=== PATIENT | female | born 1945 | race Caucasian/White ===

== ENCOUNTER → 2017-02-20 | Outpatient (CLI) | payer MEDICARE, OTHER ==
[~2017-02-20] MED LIST: OMNIPAQUE 350 MG/ML, 100ML BOTTLE ONE
== END | disposition home or self-care (01) ==
LOC: RAD 11:15
PROVIDERS: ATTEND Internal Medicine
DX: C15.9 Malignant neoplasm of esophagus, unspecified (principal); J98.11 Atelectasis; R13.10 Dysphagia, unspecified; R79.1 Abnormal coagulation profile
CPT/HCPCS: 36415; 71260; 74160; 82378; 82565; 85610; Q9967

== ENCOUNTER 2017-03-20 11:17 | Observation (INO) | payer MEDICARE, OTHER ==
[~2017-03-20] VITALS: Ht 162.6 cm; Wt 65.0 kg
[~2017-03-20 11:17] MED LIST changes: +OMEP40CA6 PO; -OMNIPAQUE 350 MG/ML, 100ML BOTTLE ONE; +RANI150T4 PO
[2017-03-20 13:10] VITALS: BP 139/79
[2017-03-20] MEDS ORDERED: LACTATED RINGERS 1,000 ML IV SCH (13:12)
[2017-03-20] MEDS ORDERED: PNEUMOCOCCAL VACC.PER PHARMACY IM ONE (13:30)
[2017-03-20] MEDS ORDERED: DEXAMETHASONE 4 MG/ML, 1ML ONE (15:34)
[2017-03-20] MEDS ORDERED: CEFAZOLIN 1,000 MG ONE (15:34)
[2017-03-20] MEDS ORDERED: SUCCINYLCHOLINE 20 MG/ML, 10ML ONE (15:34)
[2017-03-20] MEDS ORDERED: KETOROLAC 30 MG/1 ML ONE (15:34)
[2017-03-20] MEDS ORDERED: ONDANSETRON 2MG/ML, 2ML ONE (15:34)
[2017-03-20] MEDS ORDERED: BUPIVACAINE/PF-EPI 0.5% 1:200K IM ONE (16:03)
[2017-03-20] MEDS ORDERED: ACETAMINOPHEN 325 MG TABLET PO PRN (16:30)
[2017-03-20] MEDS ORDERED: LORazepam 2 MG/ML, 1ML IV PRN (16:30)
[2017-03-20] MEDS ORDERED: OXYcodone 5 MG/5 ML ORAL.SOL UDC PO PRN (16:30)
[2017-03-20] MEDS ORDERED: HYDROmorphone 1 MG/ML, 1ML IV PRN (16:30)
[2017-03-20] MEDS ORDERED: ENALAPRILAT 1.25 MG/ML, 2ML IV PRN (16:30)
[2017-03-20] MEDS ORDERED: MEPERIDINE/PF 25MG/0.5ML IVPush PRN (16:30)
[2017-03-20] MEDS ORDERED: ACETAMINOPHEN 650 MG SUPP PR PRN (16:30)
[2017-03-20] MEDS ORDERED: hydrALAzine 20 MG/ML, 1ML IV PRN ×2 (16:30)
[2017-03-20] MEDS ORDERED: HYDROcodone/APAP 7.5-325MG/15ML UDC PO PRN ×2 (16:30)
[2017-03-20] MEDS ORDERED: LABETALOL 5MG/ML, 20ML IV PRN (16:30)
[2017-03-20] MEDS ORDERED: FENTANYL PF 100 MCG/2ML IV PRN (16:30)
[2017-03-20] MEDS ORDERED: EPHEDRINE 50 MG/ML, 1ML IVPush PRN (16:30)
[2017-03-20] MEDS ORDERED: DIPHENHYDRAMINE 50 MG/ML, 1ML IV PRN (16:30)
[2017-03-20] MEDS ORDERED: PROMETHAZINE 25 MG/ML, 1ML IM PRN (16:30)
[2017-03-20] MEDS ORDERED: morphine SULFATE 10 MG/ML, 1ML IV PRN (16:30)
[2017-03-20] MEDS ORDERED: ONDANSETRON 2MG/ML, 2ML IVPush PRN (16:30)
[2017-03-20] MEDS ORDERED: PROMETHAZINE 12.5 MG SUPP PR PRN (16:30)
[2017-03-20] MEDS ORDERED: PROMETHAZINE 25 MG/ML, 1ML IV PRN (16:30)
[2017-03-20] MEDS ORDERED: MIDAZOLAM 1 MG/ML, 2ML IV PRN (16:30)
[2017-03-20] MEDS ORDERED: FENTANYL PF 100 MCG/2ML ONE (16:35)
[2017-03-20] MEDS ORDERED: OXYcodone 5 MG/5 ML ORAL.SOL UDC ONE (16:35)
[2017-03-20] MEDS: PANTOPRAZOLE 40 MG IV IVPush SCH (18:38)
[2017-03-20 18:48] VITALS: BP 104/73
[2017-03-20] MEDS: LACTATED RINGERS 1,000 ML IV SCH ×2 (20:00→23:07)
[2017-03-20] MEDS: ONDANSETRON 2MG/ML, 2ML IVPush PRN (20:13)
[2017-03-20] MEDS: CEFAZOLIN PMX 1GM/50ML 50 ML IVPB SCH (23:07)
[2017-03-21 02:33] VITALS: BP 127/73
[2017-03-21] MEDS ORDERED: LACTATED RINGERS 500 ML IVBOLUS ONE (04:30)
[2017-03-21] MEDS: LACTATED RINGERS 1,000 ML IV SCH (05:16)
[2017-03-21] MEDS: ONDANSETRON 2MG/ML, 2ML IVPush PRN ×2 (05:44→11:00)
[2017-03-21 06:33] VITALS: BP 116/59
[2017-03-21] MEDS: CEFAZOLIN PMX 1GM/50ML 50 ML IVPB SCH (07:48)
[2017-03-21] MEDS: PANTOPRAZOLE 40 MG IV IVPush SCH (07:50)
[2017-03-21] MEDS ORDERED: ENOXAPARIN 40 MG/0.4 ML SQ SCH (09:00)
[2017-03-21 11:21] VITALS: BP 126/59
[2017-03-21] MEDS ORDERED: HYDR473S47 PO (12:58)
== END 2017-03-21 13:08 | disposition home or self-care (01) ==
LOC: INTOOBSV 12:47 → ORIP 12:47 → 4NOR 17:33 → DCLOUNGE 03-21 12:53
PROVIDERS: ADMIT Thoracic Surgery (Cardiothoracic Vascular Surgery); ATTEND Thoracic Surgery (Cardiothoracic Vascular Surgery)
DX: C15.9 Malignant neoplasm of esophagus, unspecified (principal); R13.10 Dysphagia, unspecified; R63.4 Abnormal weight loss; Z85.01 Personal history of malignant neoplasm of esophagus
CPT/HCPCS: 44186; 93005; 96365; 96372; 96375; 96376; C9113; G0378; J0330; J0690; J1100; J1650; J1885; J2250; J2405; J3010; J7120

== ENCOUNTER → 2017-03-29 | Outpatient (CLI) | payer MEDICARE, OTHER ==
[~2017-03-29] MED LIST changes: +HYDR473S47 PO
[2017-03-29 12:56] LABS: BLOOD UREA NITROGEN 12 mg/dL (7-18)
[2017-03-29 13:01] LABS: ASPARTATE AMINO TRANSFERASE 16 U/L (15-37)
== END | disposition home or self-care (01) ==
LOC: CFH 11:28
PROVIDERS: ATTEND Specialist
DX: Z51.11 Encounter for antineoplastic chemotherapy (principal); C15.5 Malignant neoplasm of lower third of esophagus
CPT/HCPCS: 36415; 80053; 83615

== ENCOUNTER → 2017-04-26 | Outpatient (CLI) | payer MEDICARE, OTHER | END | disposition home or self-care (01) | LOC: LAB 11:19 | PROVIDERS: ATTEND Radiology Radiation Oncology | DX: C15.5 Malignant neoplasm of lower third of esophagus (principal); N39.0 Urinary tract infection, site not specified | CPT/HCPCS: 81001; 87077; 87086; 87147; 87186 ==

== ENCOUNTER → 2017-05-27 | Outpatient (CLI) | payer MEDICARE, OTHER ==
[~2017-05-27] MED LIST changes: +OMNIPAQUE 350 MG/ML, 100ML BOTTLE ONE
== END | disposition home or self-care (01) ==
LOC: CFH 13:26
PROVIDERS: ATTEND Specialist
DX: C15.5 Malignant neoplasm of lower third of esophagus (principal); E27.8 Other specified disorders of adrenal gland; M47.896 Other spondylosis, lumbar region; Z93.1 Gastrostomy status
CPT/HCPCS: 71260; 74177; Q9967

== ENCOUNTER → 2017-06-25 | Outpatient (CLI) | payer MEDICARE, OTHER ==
[~2017-06-25] MED LIST changes: -OMNIPAQUE 350 MG/ML, 100ML BOTTLE ONE
[2017-06-25 14:50] LABS: HEMATOCRIT 43.6 % (34.6-47.8); HEMOGLOBIN 14.2 g/dL (11.7-16.4); WHITE BLOOD COUNT 6.6 x10^3/uL (3.4-10)
[2017-06-25 14:56] LABS: ASPARTATE AMINO TRANSFERASE 32 U/L (15-37); BLOOD UREA NITROGEN 17 mg/dL (7-18)
== END | disposition home or self-care (01) ==
LOC: STAR 13:44
PROVIDERS: ATTEND Thoracic Surgery (Cardiothoracic Vascular Surgery)
DX: Z01.818 Encounter for other preprocedural examination (principal); R94.31 Abnormal electrocardiogram [ECG] [EKG]; C15.9 Malignant neoplasm of esophagus, unspecified; K21.9 Gastro-esophageal reflux disease without esophagitis; Z87.891 Personal history of nicotine dependence; Z79.899 Other long term (current) drug therapy
CPT/HCPCS: 36415; 80053; 85025; 93005

== ENCOUNTER 2017-07-03 06:27 | Inpatient (IN) | payer MEDICARE, OTHER ==
[2017-06-25 14:18] VITALS: BP 107/65
[~2017-07-03] VITALS: Ht 162.6 cm; Wt 59.5 kg
[2017-07-03] MEDS ORDERED: EPINEPHRINE 1 MG/ML, 1ML ONE ×2 (06:47→12:06)
[2017-07-03] MEDS ORDERED: BUPIVACAINE/PF 0.5% ONE ×2 (06:47→12:06)
[2017-07-03] MEDS ORDERED: LACTATED RINGERS 1,000 ML IV SCH (07:47)
[2017-07-03] MEDS ORDERED: LIDOCAINE 1%, 2ML SQ PRN (08:00)
[2017-07-03] MEDS ORDERED: FENTANYL PF 100 MCG/2ML ONE ×3 (09:04→12:39)
[2017-07-03] MEDS ORDERED: MIDAZOLAM 1 MG/ML, 2ML ONE (09:04)
[2017-07-03] MEDS ORDERED: HYDROmorphone 1 MG/ML, 1ML ONE (09:05)
[2017-07-03] MEDS ORDERED: KETOROLAC 30 MG/1 ML ONE (09:14)
[2017-07-03] MEDS ORDERED: NEOSTIGMINE 1 MG/ML, 10ML ONE (09:14)
[2017-07-03] MEDS ORDERED: KETAMINE 10 MG/ML, 20ML ONE (09:14)
[2017-07-03] MEDS ORDERED: ROCURONIUM 10 MG/ML ONE (09:14)
[2017-07-03] MEDS ORDERED: PROPOFOL 10 MG/ML, 20ML ONE (09:14)
[2017-07-03] MEDS ORDERED: CEFAZOLIN 1,000 MG ONE (09:14)
[2017-07-03] MEDS ORDERED: PHENYLEPHRINE 10 MG/ML ONE (09:14)
[2017-07-03] MEDS ORDERED: GLYCOPYRROLATE 0.2MG/1ML ONE (09:14)
[2017-07-03] MEDS ORDERED: ONDANSETRON 2MG/ML, 2ML ONE ×2 (09:14→12:39)
[2017-07-03] MEDS ORDERED: DEXAMETHASONE 4 MG/ML, 1ML ONE (09:14)
[2017-07-03] MEDS ORDERED: PROMETHAZINE 25 MG/ML, 1ML IV PRN (11:30)
[2017-07-03] MEDS ORDERED: ACETAMINOPHEN 325 MG TABLET PO PRN (11:30)
[2017-07-03] MEDS ORDERED: EPHEDRINE 50 MG/ML, 1ML IVPush PRN (11:30)
[2017-07-03] MEDS ORDERED: hydrALAzine 20 MG/ML, 1ML IV PRN (11:30)
[2017-07-03] MEDS ORDERED: MIDAZOLAM 1 MG/ML, 2ML IV PRN (11:30)
[2017-07-03] MEDS ORDERED: ONDANSETRON 2MG/ML, 2ML IVPush PRN ×2 (11:30→12:30)
[2017-07-03] MEDS ORDERED: MEPERIDINE/PF 25MG/0.5ML IVPush PRN (11:30)
[2017-07-03] MEDS ORDERED: LABETALOL 5MG/ML, 20ML IV PRN (11:30)
[2017-07-03] MEDS ORDERED: HYDROcodone/APAP 7.5-325MG/15ML UDC PO PRN (11:30)
[2017-07-03] MEDS ORDERED: HYDROmorphone 1 MG/ML, 1ML IV PRN (11:30)
[2017-07-03] MEDS ORDERED: OXYcodone 5 MG/5 ML ORAL.SOL UDC PO PRN (11:30)
[2017-07-03] MEDS ORDERED: FENTANYL PF 100 MCG/2ML IV PRN (11:30)
[2017-07-03] MEDS ORDERED: ENALAPRILAT 1.25 MG/ML, 2ML IVPush PRN (12:30)
[2017-07-03] MEDS ORDERED: DIPHENHYDRAMINE 50 MG/ML, 1ML IVPush PRN (12:30)
[2017-07-03] MEDS ORDERED: LORazepam 2 MG/ML, 1ML IVPush PRN (12:30)
[2017-07-03] MEDS ORDERED: PROMETHAZINE 25 MG SUPP PR PRN (12:30)
[2017-07-03] MEDS ORDERED: PROMETHAZINE 25 MG/ML, 1ML IM PRN (12:30)
[2017-07-03] MEDS ORDERED: hydrALAzine 20 MG/ML, 1ML IVPush PRN (12:30)
[2017-07-03] MEDS ORDERED: ACETAMINOPHEN 650 MG/20.3 ML UDC ONE (12:39)
[2017-07-03] MEDS ORDERED: OXYcodone 5 MG/5 ML ORAL.SOL UDC ONE (12:39)
[2017-07-03] MEDS ORDERED: HYDROmorphone 2 MG/ML, 1ML ONE (12:54)
[2017-07-03 13:45] VITALS: BP 138/83
[2017-07-03] MEDS: PANTOPRAZOLE 40 MG IV IVPush SCH (15:44)
[2017-07-03] MEDS: CEFAZOLIN PMX 1GM/50ML 50 ML IVPB SCH ×2 (15:44→23:43)
[2017-07-03] MEDS: LACTATED RINGERS 1,000 ML IV SCH ×2 (15:45→18:37)
[2017-07-03 18:58] VITALS: BP 139/69
[2017-07-03 23:47] VITALS: BP 135/57
[2017-07-04 03:26] VITALS: BP 129/77
[2017-07-04 05:17] LABS: HEMATOCRIT 37.5 % (34.6-47.8); HEMOGLOBIN 12.5 g/dL (11.7-16.4); WHITE BLOOD COUNT 11.9 x10^3/uL (3.4-10)
[2017-07-04 05:24] LABS: BLOOD UREA NITROGEN 16 mg/dL (7-18)
[2017-07-04 08:13] VITALS: BP 121/70
[2017-07-04] MEDS: ENOXAPARIN 40 MG/0.4 ML SQ SCH (09:04)
[2017-07-04] MEDS: CEFAZOLIN PMX 1GM/50ML 50 ML IVPB SCH ×2 (09:04→18:08)
[2017-07-04] MEDS: PANTOPRAZOLE 40 MG IV IVPush SCH (09:04)
[2017-07-04] MEDS: LACTATED RINGERS 1,000 ML IV SCH ×2 (09:13→18:08)
[2017-07-04] MEDS ORDERED: BENZOCAINE 20% SPRAY 0.5ML TP PRN ×2 (11:30→16:00)
[2017-07-04] MEDS ORDERED: PHENOL THROAT SPRAY BOTTLE MM PRN (11:30)
[2017-07-04 13:50] VITALS: BP 108/62
[2017-07-04] MEDS ORDERED: BENZOCAINE AEROSOL SPRAY 20%, 60ML TP ONE (16:00)
[2017-07-04 21:15] VITALS: BP 111/61
[2017-07-05 02:06] VITALS: BP 139/68
[2017-07-05] MEDS: CEFAZOLIN PMX 1GM/50ML 50 ML IVPB SCH ×3 (02:13→18:00)
[2017-07-05] MEDS: LACTATED RINGERS 1,000 ML IV SCH ×2 (04:17→23:47)
[2017-07-05 07:17] VITALS: BP 115/62
[2017-07-05] MEDS: PANTOPRAZOLE 40 MG IV IVPush SCH (08:46)
[2017-07-05] MEDS: ENOXAPARIN 40 MG/0.4 ML SQ SCH (08:46)
[2017-07-05 14:21] VITALS: BP 130/71
[2017-07-05] MEDS ORDERED: OMNIPAQUE 350 MG/ML, 150 ML BOTTLE ONE (15:27)
[2017-07-05 19:50] VITALS: BP 130/76
[2017-07-06 02:26] VITALS: BP 126/76
[2017-07-06] MEDS: CEFAZOLIN PMX 1GM/50ML 50 ML IVPB SCH ×3 (02:33→17:53)
[2017-07-06 07:35] VITALS: BP 123/74
[2017-07-06] MEDS: PANTOPRAZOLE 40 MG IV IVPush SCH (09:00)
[2017-07-06] MEDS: ENOXAPARIN 40 MG/0.4 ML SQ SCH (09:00)
[2017-07-06] MEDS: LACTATED RINGERS 1,000 ML IV SCH ×2 (09:00→17:54)
[2017-07-06 13:50] VITALS: BP 122/70
[2017-07-06 19:13] VITALS: BP 142/74
[2017-07-07 00:58] VITALS: BP 112/70
[2017-07-07] MEDS: CEFAZOLIN PMX 1GM/50ML 50 ML IVPB SCH ×3 (02:24→18:41)
[2017-07-07] MEDS: LACTATED RINGERS 1,000 ML IV SCH ×2 (05:00→15:36)
[2017-07-07 07:02] VITALS: BP 106/65
[2017-07-07] MEDS: ENOXAPARIN 40 MG/0.4 ML SQ SCH (09:14)
[2017-07-07] MEDS: PANTOPRAZOLE 40 MG IV IVPush SCH (09:14)
[2017-07-07 13:49] VITALS: BP 100/63
[2017-07-07 20:05] VITALS: BP 123/75
[2017-07-08] MEDS: LACTATED RINGERS 1,000 ML IV SCH ×3 (01:00→19:29)
[2017-07-08 01:38] VITALS: BP 114/69
[2017-07-08] MEDS: CEFAZOLIN PMX 1GM/50ML 50 ML IVPB SCH ×3 (02:55→18:17)
[2017-07-08] MEDS: ENOXAPARIN 40 MG/0.4 ML SQ SCH (08:51)
[2017-07-08] MEDS: PANTOPRAZOLE 40 MG IV IVPush SCH (08:52)
[2017-07-08 09:02] VITALS: BP 122/62
[2017-07-08 15:02] VITALS: BP 128/78
[2017-07-08 20:39] VITALS: BP 126/67
[2017-07-09] MEDS: CEFAZOLIN PMX 1GM/50ML 50 ML IVPB SCH ×2 (02:42→09:24)
[2017-07-09 04:11] VITALS: BP 126/72
[2017-07-09] MEDS: PANTOPRAZOLE 40 MG IV IVPush SCH (09:00)
[2017-07-09] MEDS: ENOXAPARIN 40 MG/0.4 ML SQ SCH (09:00)
[2017-07-09 09:27] VITALS: BP 132/82
[2017-07-09] MEDS ORDERED: HYDR473S51 PO/NG (09:51)
[2017-07-09] MEDS ORDERED: OMEP-110 PO (09:52)
== END 2017-07-09 10:00 | disposition home health service (06) | DRG 327 ==
LOC: ORIP 06:27 → 4NOR 13:53 → DCLOUNGE 07-09 09:35
PROVIDERS: ADMIT Thoracic Surgery (Cardiothoracic Vascular Surgery); ATTEND Thoracic Surgery (Cardiothoracic Vascular Surgery)
PROC: 0FB04ZX Excision of Liver, Percutaneous Endoscopic Approach, Diagnostic (ICD-10-PCS; 2017-07-03)
PROC: 0DT Gastrointestinal System, Resection (ICD-10-PCS; principal; 2017-07-03 09:00)
DX: C15.5 Malignant neoplasm of lower third of esophagus (principal); R65.10 Systemic inflammatory response syndrome (SIRS) of non-infectious origin without acute organ dysfunction; F17.210 Nicotine dependence, cigarettes, uncomplicated; K21.9 Gastro-esophageal reflux disease without esophagitis; J02.9 Acute pharyngitis, unspecified; Z92.21 Personal history of antineoplastic chemotherapy; Z92.3 Personal history of irradiation; Z93.4 Other artificial openings of gastrointestinal tract status
CPT/HCPCS: 36415; 71010; 74241; 80048; 81003; 85025; 86850; 86900; 88307; 88309; 88331; 88342; C1729; J0171; J0690; J1100; J1170; J1650; J1885; J2250; J2270; J2405; J2704; J2710; J3010; J3490; Q9967; C9113; G0461; J2370; J7120

== ENCOUNTER → 2018-07-30 | Outpatient (CLI) | payer MEDICARE, OTHER ==
[~2018-07-30] MED LIST changes: +HYDR473S51 PO/NG; +OMEP-110 PO; +OMNIPAQUE 350 MG/ML, 100ML BOTTLE ONE
== END | disposition home or self-care (01) ==
LOC: RAD 11:43
PROVIDERS: ATTEND Specialist
DX: E27.9 Disorder of adrenal gland, unspecified (principal); E04.1 Nontoxic single thyroid nodule; N28.1 Cyst of kidney, acquired; I70.0 Atherosclerosis of aorta; C15.5 Malignant neoplasm of lower third of esophagus; F17.200 Nicotine dependence, unspecified, uncomplicated
CPT/HCPCS: 71260; 74177; Q9967

== ENCOUNTER → 2019-03-31 | Outpatient (CLI) | payer MEDICARE | END | disposition home or self-care (01) | LOC: CFH 11:34 | PROVIDERS: ATTEND Specialist | DX: C15.5 Malignant neoplasm of lower third of esophagus (principal); R59.0 Localized enlarged lymph nodes; J90 Pleural effusion, not elsewhere classified; E04.1 Nontoxic single thyroid nodule | CPT/HCPCS: 71260; 74160; 82565; Q9967 ==

== ENCOUNTER → 2019-05-05 | Outpatient (CLI) | payer MEDICARE ==
[~2019-05-05] MED LIST changes: -OMNIPAQUE 350 MG/ML, 100ML BOTTLE ONE
== END | disposition home or self-care (01) ==
LOC: PETCFH 09:38
PROVIDERS: ATTEND Specialist
DX: C15.5 Malignant neoplasm of lower third of esophagus (principal); J90 Pleural effusion, not elsewhere classified; E27.8 Other specified disorders of adrenal gland; R91.8 Other nonspecific abnormal finding of lung field
CPT/HCPCS: 78815; A9552

== ENCOUNTER → 2020-07-19 | Outpatient (CLI) | payer MEDICARE ==
[~2020-07-19] MED LIST changes: +ACID1TAB7 PO; +CALC-451 PO; +CEFD300C37 PO; +Calcium Carbonate PO; +DOXY100T PO; +FLUT1AER INH; +OMEG1CAP23 PO; +OMEP40CA42 PO; -OMEP40CA6 PO; +SUCR1TAB33 PO; +TIOT18CA INH
== END | disposition home or self-care (01) ==
LOC: CFH 12:35
PROVIDERS: ATTEND Urology
DX: K57.30 Diverticulosis of large intestine without perforation or abscess without bleeding (principal); N20.0 Calculus of kidney; J98.4 Other disorders of lung; M43.8X4 Other specified deforming dorsopathies, thoracic region; M85.88 Other specified disorders of bone density and structure, other site; I70.0 Atherosclerosis of aorta
CPT/HCPCS: 74176

== ENCOUNTER 2021-07-03 05:30 | Emergency (ER) | payer MEDICARE ==
[~2021-07-03] VITALS: Ht 160 cm; Wt 55.0 kg
[~2021-07-03 05:30] MED LIST changes: -OMEP40CA42 PO; +OMEP40CA8 PO
[2021-07-03] MEDS ORDERED: ONDANSETRON 2MG/ML, 2ML IVPush ONE ×2 (06:30→09:30)
[2021-07-03] MEDS ORDERED: SODIUM CHLORIDE FLUSH 10ML SYR IVF ONE (06:30)
[2021-07-03] MEDS ORDERED: MORPHINE SULFATE 4 MG/ML, 1ML IVPush PRN ×2 (06:30→09:30)
[2021-07-03] MEDS ORDERED: ONDANSETRON 2MG/ML, 2ML ONE ×2 (06:37→09:17)
[2021-07-03] MEDS ORDERED: MORPHINE SULFATE 4 MG/ML, 1ML ONE ×2 (06:37→09:17)
--- NOTE | 2021-07-03 07:02 | NUR ---
REPORT FROM SHADIA CERDA, PT RESTING IN [facility], MONITORING IN PLACE, NADN AT THIS TIME, TM.
[2021-07-03 07:09] LABS: ALANINE AMINOTRANSFERASE 25 U/L (12-78); ALBUMIN 3.9 g/dL (3.4-5.0); ANION GAP 10 mmol/L (5-15); BASOPHILS % (AUTO) 1 % (0-1); CALCIUM 9.9 mg/dL (8.5-10.1); CHLORIDE 105 mmol/L (98-107); CREATININE 0.88 mg/dL (0.55-1.02); EOSINOPHILS % (AUTO) 0 % (1-7); LYMPHOCYTES % (AUTO) 13 % (22-44); MEAN CORPUSCULAR HEMOGLOBIN 31.4 pg (27.0-34.8); MEAN PLATELET VOLUME 9.4 fL (7.4-10.4); MONOCYTES % (AUTO) 6 % (2-9); NEUTROPHILS % (AUTO) 81 % (42-75); PLATELET COUNT 202 x10^3/uL (130-400); RED BLOOD COUNT 4.69 x10^6/uL (3.82-5.3); RED CELL DISTRIBUTION WIDTH 14.5 % (9.6-15.2)
[2021-07-03 07:11] LABS: ALKALINE PHOSPHATASE 63 U/L (45-117); BILIRUBIN,TOTAL 0.7 mg/dL (0.2-1.0); TOTAL PROTEIN 7.8 g/dL (6.4-8.2)
--- NOTE | 2021-07-03 07:14 | NUR ---
CT DELAY; ONE TECH HERE, DOING AN INPT COVID SCAN FIRST
--- NOTE | 2021-07-03 07:15 | NUR ---
PATIENT BIB VIA POV. PER PT C/O OF RIGHT LOWER ABDOMINAL PAIN RADIATING TO RIGHT LOWER BACK SINCE 8PM LAST NIGHT. +N/V. DENIES DIARRHEA. DENIES SYMPTOMS. PATIENT STATES DX WITH KIDNEY STONES 1 YEAR AGO AND THAT "THE DOCTOR TOLD ME I WOULD HAVE TO GET IT REMOVED SURGICALLY". PT RESTING IN [facility], MONITORING IN PLACE, AT BEDSIDE, NADN AT THIS TIME, PER PT NO NEEDS, WCTM.
[2021-07-03 09:55] LABS: MICROSCOPIC INDICATED
[2021-07-03] MEDS ORDERED: CEFTRIAXONE 1,000 MG ONE (10:54)
[2021-07-03] MEDS ORDERED: CEFTRIAXONE 1,000 MG IM ONE (11:00)
[2021-07-03] MEDS ORDERED: CEFTRIAXONE 1,000 MG in DEXTROSE 5% 50 ML IVPB ONE (11:00)
[2021-07-03 11:03] VITALS: BP 168/91
== END 2021-07-03 11:35 | disposition home or self-care (01) ==
LOC: ED 08:05
DX: N10 Acute pyelonephritis (principal); R10.84 Generalized abdominal pain; R11.2 Nausea with vomiting, unspecified
CPT/HCPCS: 36415; 74176; 80053; 81001; 85025; 87086; 96372; 96374; 96375; 96376; 99285; J0696; J2270; J2405

== ENCOUNTER 2021-07-03 18:26 | Inpatient (IN) | payer MEDICARE ==
[~2021-07-03] VITALS: Ht 160 cm; Wt 76.5 kg
[2021-07-03] MEDS ORDERED: ONDANSETRON 2MG/ML, 2ML ONE (19:56)
[2021-07-03] MEDS ORDERED: SODIUM CHLORIDE FLUSH 10ML SYR IVF ONE (20:00)
[2021-07-03] MEDS ORDERED: SODIUM CHLORIDE 0.9% 1,000ML IVBOLUS ONE (20:00)
[2021-07-03] MEDS ORDERED: CEFTRIAXONE 1,000 MG in DEXTROSE 5% 50 ML IVPB ONE (20:00)
[2021-07-03] MEDS ORDERED: PHENAZOPYRIDINE 200 MG TABLET PO ONE (20:00)
[2021-07-03] MEDS ORDERED: ONDANSETRON 2MG/ML, 2ML IVPush ONE (20:00)
[2021-07-03] MEDS ORDERED: PHENAZOPYRIDINE 200 MG TABLET ONE (20:52)
[2021-07-03] MEDS ORDERED: BISACODYL 10 MG SUPP PR PRN (21:00)
[2021-07-03] MEDS ORDERED: PANTOPRAZOLE 40 MG IV IVPush ONE (21:00)
[2021-07-03] MEDS ORDERED: MELATONIN 5 MG TABLET PO PRN (21:00)
[2021-07-03] MEDS ORDERED: ACETAMINOPHEN 325 MG TABLET PO PRN (21:00)
[2021-07-03 21:26] VITALS: BP 145/83
[2021-07-03] MEDS: SODIUM CHLORIDE 0.9% 1,000 ML IV SCH (21:33)
[2021-07-03] MEDS: ENOXAPARIN 40 MG/0.4 ML SQ SCH (21:33)
[2021-07-04 00:38] VITALS: BP 111/48
[2021-07-04] MEDS: SODIUM CHLORIDE 0.9% 1,000 ML IV SCH (04:19)
[2021-07-04 05:35] LABS: BASOPHILS % (AUTO) 0 % (0-1); EOSINOPHILS % (AUTO) 0 % (1-7); LYMPHOCYTES % (AUTO) 18 % (22-44); MEAN CORPUSCULAR HEMOGLOBIN 31.6 pg (27.0-34.8); MEAN CORPUSCULAR HGB CONC 33.9 g/dL (32.4-35.8); MEAN PLATELET VOLUME 9.8 fL (7.4-10.4); MONOCYTES % (AUTO) 12 % (2-9); NEUTROPHILS % (AUTO) 70 % (42-75); PLATELET COUNT 173 x10^3/uL (130-400); RED BLOOD COUNT 4.32 x10^6/uL (3.82-5.3); RED CELL DISTRIBUTION WIDTH 14.6 % (9.6-15.2)
[2021-07-04 05:41] LABS: ANION GAP 8 mmol/L (5-15); CALCIUM 8.3 mg/dL (8.5-10.1); CHLORIDE 107 mmol/L (98-107); CREATININE 0.76 mg/dL (0.55-1.02)
[2021-07-04] MEDS ORDERED: PHENAZOPYRIDINE 200 MG TABLET PO PRN (07:30)
[2021-07-04 08:00] VITALS: BP 155/87
[2021-07-04] MEDS: FLUTICASONE/VILANTEROL 100-25MCG/INH INH SCH (09:00)
[2021-07-04] MEDS ORDERED: ONDANSETRON 2MG/ML, 2ML IVPush PRN (11:00)
[2021-07-04] MEDS ORDERED: OXYcodone 5 MG/5 ML ORAL.SOL UDC PO PRN (11:30)
[2021-07-04] MEDS: ONDANSETRON 2MG/ML, 2ML IVPush PRN ×2 (11:52→18:29)
[2021-07-04] MEDS: D5%-0.9% NACL 1,000 ML IV SCH ×2 (12:00→19:56)
[2021-07-04] MEDS: TIOTROPIUM BROMIDE 18 MCG/INH INH SCH (12:07)
[2021-07-04 13:34] VITALS: BP 166/93
[2021-07-04] MEDS: POLYETHYLENE GLYCOL 17 GM PACKET PO PRN (18:29)
[2021-07-04 19:12] VITALS: BP 164/89
[2021-07-04] MEDS: CEFTRIAXONE 1,000 MG in DEXTROSE 5% 50 ML IVPB SCH (19:53)
[2021-07-04] MEDS: ENOXAPARIN 40 MG/0.4 ML SQ SCH ×2 (19:55→23:09)
[2021-07-04] MEDS: SUCRALFATE 1 GM TABLET PO SCH (19:57)
[2021-07-05 01:15] VITALS: BP 154/89
[2021-07-05] MEDS: D5%-0.9% NACL 1,000 ML IV SCH (04:17)
[2021-07-05 06:14] LABS: BASOPHILS % (AUTO) 0 % (0-1); EOSINOPHILS % (AUTO) 1 % (1-7); LYMPHOCYTES % (AUTO) 12 % (22-44); MEAN CORPUSCULAR HEMOGLOBIN 31.1 pg (27.0-34.8); MEAN CORPUSCULAR HGB CONC 33.3 g/dL (32.4-35.8); MEAN PLATELET VOLUME 9.7 fL (7.4-10.4); MONOCYTES % (AUTO) 13 % (2-9); NEUTROPHILS % (AUTO) 75 % (42-75); PLATELET COUNT 154 x10^3/uL (130-400); RED BLOOD COUNT 4.27 x10^6/uL (3.82-5.3); RED CELL DISTRIBUTION WIDTH 14.4 % (9.6-15.2)
[2021-07-05 06:24] LABS: CHLORIDE 106 mmol/L (98-107)
[2021-07-05 06:26] LABS: ANION GAP 6 mmol/L (5-15); CALCIUM 7.9 mg/dL (8.5-10.1); CREATININE 0.59 mg/dL (0.55-1.02)
[2021-07-05 06:42] VITALS: BP 154/91
[2021-07-05] MEDS ORDERED: POTASSIUM PHOSPHATE 44 MEQ in SODIUM CHLORIDE 0.9% 500 ML IV ONE (08:30)
[2021-07-05] MEDS ORDERED: MAGNESIUM SULFATE PMX 4GM/100M 100 ML IVPB ONE (08:30)
[2021-07-05] MEDS: SENNA/DOCUSATE TABLET PO SCH (11:48)
[2021-07-05] MEDS: MAGNESIUM CHLORIDE 64 MG TABLET.DR PO SCH ×2 (11:48→19:56)
[2021-07-05] MEDS: OMEPRAZOLE 20 MG CAPSULE.DR PO SCH (11:48)
[2021-07-05] MEDS: POLYETHYLENE GLYCOL 17 GM PACKET PO PRN (11:50)
[2021-07-05] MEDS: FLUTICASONE/VILANTEROL 100-25MCG/INH INH SCH (11:51)
[2021-07-05] MEDS ORDERED: POTASSIUM CHLORIDE 40 MEQ in SODIUM CHLORIDE 0.9% 500 ML IV ONE (13:00)
[2021-07-05] MEDS: SUCRALFATE 1 GM TABLET PO SCH (19:56)
[2021-07-05] MEDS: CEFTRIAXONE 1,000 MG in DEXTROSE 5% 50 ML IVPB SCH (19:56)
[2021-07-05] MEDS: TIOTROPIUM BROMIDE 18 MCG/INH INH SCH (19:58)
[2021-07-05] MEDS: ONDANSETRON 2MG/ML, 2ML IVPush PRN (20:01)
[2021-07-05 20:15] VITALS: BP 125/79
[2021-07-06 00:08] VITALS: BP 146/82
[2021-07-06] MEDS: ENOXAPARIN 40 MG/0.4 ML SQ SCH (00:13)
[2021-07-06 06:20] LABS: ALANINE AMINOTRANSFERASE 16 U/L (12-78); ALBUMIN 2.9 g/dL (3.4-5.0); ANION GAP 6 mmol/L (5-15); CHLORIDE 107 mmol/L (98-107); CREATININE 0.53 mg/dL (0.55-1.02)
[2021-07-06 06:23] LABS: ALKALINE PHOSPHATASE 49 U/L (45-117); BILIRUBIN,TOTAL 0.6 mg/dL (0.2-1.0); TOTAL PROTEIN 6.5 g/dL (6.4-8.2)
[2021-07-06 07:13] VITALS: BP 150/86
[2021-07-06] MEDS: ONDANSETRON 2MG/ML, 2ML IVPush PRN (08:14)
[2021-07-06] MEDS: FLUTICASONE/VILANTEROL 100-25MCG/INH INH SCH (08:14)
[2021-07-06] MEDS: TIOTROPIUM BROMIDE 18 MCG/INH INH SCH (08:15)
[2021-07-06] MEDS: SENNA/DOCUSATE TABLET PO SCH (09:48)
[2021-07-06] MEDS: OMEPRAZOLE 20 MG CAPSULE.DR PO SCH (09:48)
[2021-07-06] MEDS: MAGNESIUM CHLORIDE 64 MG TABLET.DR PO SCH (09:48)
[2021-07-06] MEDS ORDERED: SENN-211 PO (10:57)
== END 2021-07-06 15:38 | disposition home or self-care (01) | DRG 689 ==
LOC: ED 20:00 → EDIP 21:16 → 3N 21:17
PROVIDERS: ADMIT Internal Medicine; ATTEND Internal Medicine
DX: N10 Acute pyelonephritis (principal); J96.21 Acute and chronic respiratory failure with hypoxia; N20.0 Calculus of kidney; K21.9 Gastro-esophageal reflux disease without esophagitis; K59.00 Constipation, unspecified; J44.9 Chronic obstructive pulmonary disease, unspecified; Z85.01 Personal history of malignant neoplasm of esophagus; Z79.899 Other long term (current) drug therapy; Z83.3 Family history of diabetes mellitus; Z82.49 Family history of ischemic heart disease and other diseases of the circulatory system
CPT/HCPCS: 36415; 74176; 80048; 80053; 81001; 83605; 83735; 84100; 84145; 85025; 87040; 87086; 96365; 96372; 96374; 96375; 96376; G0378; J0696; J1650; J2405; J3480; J7042; C9113; J2270; J3475; J7030; J7040

== ENCOUNTER 2021-07-09 14:22 | Inpatient (IN) | payer MEDICARE ==
[~2021-07-09] VITALS: Ht 162.6 cm; Wt 58.6 kg
[~2021-07-09 14:22] MED LIST changes: +SENN-211 PO
--- NOTE | 2021-07-09 15:19 | NUR ---
CC OF SOB, PT STATES HOME PULSE OX SHOWS LOW 80'S RA. PT RECENTLY ADMITTED FOR KIDNEY INFECTION AND SEPSIS. PT DENYING ABD PAIN AT THIS TIME. ALSO REPORTS CONSTIPATION X 1 WEEK. PT STILL TAKING PO ANTIBIOTICS.
[2021-07-09] MEDS ORDERED: ALBUTEROL/IPRATROPIUM 2.5MG/0.5MG, 3 ML ONE (15:28)
[2021-07-09] MEDS ORDERED: ALBUTEROL/IPRATROPIUM 2.5MG/0.5MG, 3 ML NEB ONE (15:30)
[2021-07-09 16:05] LABS: BASOPHILS % (AUTO) 1 % (0-1); EOSINOPHILS % (AUTO) 2 % (1-7); LYMPHOCYTES % (AUTO) 12 % (22-44); MEAN CORPUSCULAR HGB CONC 33.4 g/dL (32.4-35.8); MEAN PLATELET VOLUME 9.7 fL (7.4-10.4); MONOCYTES % (AUTO) 11 % (2-9); NEUTROPHILS % (AUTO) 74 % (42-75); PLATELET COUNT 205 x10^3/uL (130-400); RED CELL DISTRIBUTION WIDTH 13.8 % (9.6-15.2)
--- NOTE | 2021-07-09 16:09 | NUR ---
PT REPORTS THAT IT IS EASIER TO BREATHE AFTER BREATHING TX
[2021-07-09 16:14] LABS: ANION GAP 7 mmol/L (5-15); CALCIUM 9.1 mg/dL (8.5-10.1); CHLORIDE 103 mmol/L (98-107)
[2021-07-09 16:22] LABS: ALANINE AMINOTRANSFERASE 24 U/L (12-78); ALKALINE PHOSPHATASE 52 U/L (45-117); BILIRUBIN,TOTAL 0.7 mg/dL (0.2-1.0); CREATININE 0.74 mg/dL (0.55-1.02); TOTAL PROTEIN 7.2 g/dL (6.4-8.2); TROPONIN I < 0.015 ng/mL (0.000-0.045)
--- NOTE | 2021-07-09 17:24 | NUR ---
RA SP02 OF 86% WITH RR INCREASING TO 35, HR TACHY AT 115-120. PT AND BOTH NOT WANTING TO BE ADMITTED. PT AT THIS TIME REFUSING COVID SWAB. PT EDUCATED ON RESO FAILURE AND ABNORMAL VITALS. PT STATES SHE HAS OXYGEN TANKS AT HOME AND DEMANDING WHAT WE CAN DO HERE THAT IS BETTER. MD AWARE, WILL BE BACK TO SPEAK WITH PATIENT AND . PT PLACED BACK ON 2 L NC.
--- NOTE | 2021-07-09 17:55 | NUR ---
PT TO CT
[2021-07-09] MEDS ORDERED: OMNIPAQUE 350 MG/ML, 100ML BOTTLE ONE (18:25)
[2021-07-09] MEDS ORDERED: SODIUM CHLORIDE FLUSH 10ML SYR IVF ONE (19:00)
[2021-07-09] MEDS ORDERED: SODIUM CHLORIDE 0.9% 1,000 ML IV ONE ×2 (19:00→19:30)
--- NOTE | 2021-07-09 19:18 | NUR ---
report to Cristal adame in [place]. Will come get pt when covid test is back. pt and updated on poc
[2021-07-09] MEDS ORDERED: METRONIDAZOLE PMX 500MG/100ML 100 ML ONE (19:19)
--- NOTE | 2021-07-09 19:25 | NUR ---
PT VERY ANXIOUS ABOUT SURGERY. REQUESTING TO HAVE NG PLACED ONCE UNDER. REPORT GIVEN TO DISTRICT LEADER JUAN MANUEL, STATED THAT IS FINE. PT UPDATED ON POC. ABNER HERNANDEZ AT BEDSIDE. RAPID COVID TEST PENDING.
--- NOTE | 2021-07-09 19:28 | NUR ---
TP RN: CALLED [facility]SE SUP AT [facility] D/T PT INSURANCE, DENIED TRANSFER D/T BEING ON CLOSED DIVERT. PSN FAXED TO [phone]
[2021-07-09] MEDS ORDERED: METRONIDAZOLE PMX 500MG/100ML 100 ML IVPB ONE (19:30)
[2021-07-09] MEDS ORDERED: CEFTRIAXONE 1,000 MG in DEXTROSE 5% 50 ML IVPB ONE (19:30)
[2021-07-09] MEDS ORDERED: SODIUM CHLORIDE FLUSH 10ML SYR IVF PRN (19:30)
[2021-07-09] MEDS ORDERED: PROPOFOL 50 ML ONE (19:46)
[2021-07-09] MEDS ORDERED: FENTANYL PF 250 MCG/5ML ONE (19:46)
[2021-07-09] MEDS ORDERED: BISACODYL 10 MG SUPP PR PRN (20:00)
[2021-07-09] MEDS ORDERED: ONDANSETRON 2MG/ML, 2ML IVPush PRN ×2 (20:00→21:30)
[2021-07-09] MEDS ORDERED: NS + 20MEQ KCL 1,000 ML IV SCH (20:00)
[2021-07-09] MEDS ORDERED: morphine SULFATE 10 MG/ML, 1ML IVPush PRN ×2 (20:00→21:30)
[2021-07-09] MEDS ORDERED: POTASSIUM CHLORIDE 40 MEQ in SODIUM CHLORIDE 0.9% 500 ML IV ONE (20:00)
[2021-07-09] MEDS ORDERED: ONDANSETRON 2MG/ML, 2ML ONE ×2 (20:14→21:54)
[2021-07-09] MEDS ORDERED: SUCCINYLCHOLINE 20 MG/ML, 10ML ONE (20:14)
[2021-07-09] MEDS ORDERED: ROCURONIUM 10 MG/ML,10ML ONE (20:14)
[2021-07-09] MEDS ORDERED: FENTANYL PF 100 MCG/2ML ONE (21:07)
[2021-07-09] MEDS ORDERED: OXYcodone 5 MG/5 ML ORAL.SOL UDC PO PRN (21:30)
[2021-07-09] MEDS ORDERED: DIAZEPAM 5 MG/ML, 2ML IVPush PRN (21:30)
[2021-07-09] MEDS ORDERED: EPHEDRINE 50 MG/ML, 1ML IM PRN (21:30)
[2021-07-09] MEDS ORDERED: LABETALOL 5MG/ML, 20ML IV PRN (21:30)
[2021-07-09] MEDS ORDERED: PROMETHAZINE 25 MG/ML, 1ML IVPush PRN (21:30)
[2021-07-09] MEDS ORDERED: EPHEDRINE 50 MG/ML, 1ML IVPush PRN (21:30)
[2021-07-09] MEDS ORDERED: DIPHENHYDRAMINE 50 MG/ML, 1ML IVPush PRN (21:30)
[2021-07-09] MEDS ORDERED: MEPERIDINE/PF 25MG/0.5ML IVPush PRN (21:30)
[2021-07-09] MEDS ORDERED: FENTANYL PF 100 MCG/2ML IV PRN (21:30)
[2021-07-09 22:45] VITALS: BP 156/71
[2021-07-09] MEDS ORDERED: LEVO125C4 PO (22:49)
[2021-07-09] MEDS ORDERED: LEVO25TA4 PO (22:50)
[2021-07-09] MEDS ORDERED: NYST1000 PO (22:50)
[2021-07-10 00:08] VITALS: BP 153/81
[2021-07-10] MEDS ORDERED: POTASSIUM CHLORIDE 20 MEQ in D5%-0.45% NACL 1,000 ML IV SCH (01:00)
[2021-07-10] MEDS ORDERED: ONDANSETRON 2MG/ML, 2ML IV PRN (01:00)
[2021-07-10] MEDS ORDERED: morphine SULFATE 10 MG/ML, 1ML IV PRN (01:00)
[2021-07-10] MEDS: KETOROLAC 30 MG/1 ML IV SCH ×4 (01:08→18:48)
[2021-07-10 03:45] VITALS: BP 169/93
[2021-07-10] MEDS ORDERED: IPRATROPIUM 0.5 MG/2.5 ML INHA NPPB SCH (06:00)
[2021-07-10 06:04] LABS: BASOPHILS % (AUTO) 0 % (0-1); EOSINOPHILS % (AUTO) 0 % (1-7); LYMPHOCYTES % (AUTO) 7 % (22-44); MEAN CORPUSCULAR HEMOGLOBIN 30.7 pg (27.0-34.8); MEAN CORPUSCULAR HGB CONC 32.8 g/dL (32.4-35.8); MEAN PLATELET VOLUME 10.4 fL (7.4-10.4); MONOCYTES % (AUTO) 8 % (2-9); NEUTROPHILS % (AUTO) 85 % (42-75); PLATELET COUNT 212 x10^3/uL (130-400); RED BLOOD COUNT 4.49 x10^6/uL (3.82-5.3); RED CELL DISTRIBUTION WIDTH 13.8 % (9.6-15.2)
[2021-07-10 06:17] LABS: CHLORIDE 108 mmol/L (98-107)
[2021-07-10 06:25] LABS: ALANINE AMINOTRANSFERASE 36 U/L (12-78); ALBUMIN 2.1 g/dL (3.4-5.0); ALKALINE PHOSPHATASE 40 U/L (45-117); ANION GAP 6 mmol/L (5-15); BILIRUBIN,TOTAL 0.7 mg/dL (0.2-1.0); CALCIUM 7.9 mg/dL (8.5-10.1); CREATININE 0.56 mg/dL (0.55-1.02); TOTAL PROTEIN 5.5 g/dL (6.4-8.2)
[2021-07-10 06:40] VITALS: BP 120/72
[2021-07-10] MEDS ORDERED: ALBUTEROL/IPRATROPIUM 2.5MG/0.5MG, 3 ML ONE (07:17)
[2021-07-10] MEDS: ALBUTEROL/IPRATROPIUM 2.5MG/0.5MG, 3 ML NPPB SCH ×3 (07:20→15:15)
[2021-07-10] MEDS: BUDESONIDE 0.5 MG/2 ML INHA INH SCH ×2 (07:20→21:00)
[2021-07-10] MEDS ORDERED: FLUTICASONE/VILANTEROL 100-25MCG/INH INH SCH (09:00)
[2021-07-10 12:45] VITALS: BP 110/73
[2021-07-10] MEDS ORDERED: LACTATED RINGERS 1,000 ML IV SCH (14:30)
[2021-07-10] MEDS: FAMOTIDINE 20 MG/2 ML IVPush SCH (15:36)
[2021-07-10] MEDS: LACTATED RINGERS 1,000 ML IV SCH ×2 (15:37→22:03)
[2021-07-10 17:21] VITALS: BP 94/65
[2021-07-10] MEDS ORDERED: SODIUM CHLORIDE 0.9%, 500ML IVBOLUS ONE (17:30)
[2021-07-10 17:46] LABS: BASOPHILS % (AUTO) 0 % (0-1); EOSINOPHILS % (AUTO) 0 % (1-7); LYMPHOCYTES % (AUTO) 10 % (22-44); MEAN CORPUSCULAR HEMOGLOBIN 30.6 pg (27.0-34.8); MEAN CORPUSCULAR HGB CONC 32.9 g/dL (32.4-35.8); MEAN PLATELET VOLUME 9.8 fL (7.4-10.4); MONOCYTES % (AUTO) 10 % (2-9); NEUTROPHILS % (AUTO) 80 % (42-75); PLATELET COUNT 206 x10^3/uL (130-400); RED BLOOD COUNT 4.25 x10^6/uL (3.82-5.3); RED CELL DISTRIBUTION WIDTH 14.1 % (9.6-15.2)
[2021-07-10 18:10] LABS: ANION GAP 5 mmol/L (5-15); CHLORIDE 111 mmol/L (98-107); CREATININE 0.84 mg/dL (0.55-1.02)
[2021-07-10 18:12] VITALS: BP 94/57
[2021-07-10] MEDS: ENOXAPARIN 40 MG/0.4 ML SQ SCH (18:48)
[2021-07-10] MEDS ORDERED: FAMOTIDINE 20 MG/2 ML IVPush SCH (21:00)
[2021-07-10] MEDS: CEFTRIAXONE 1,000 MG in DEXTROSE 5% 50 ML IVPB SCH (22:02)
[2021-07-11] MEDS: KETOROLAC 30 MG/1 ML IV SCH ×4 (01:00→17:26)
[2021-07-11 01:30] VITALS: BP 99/62
[2021-07-11] MEDS: FAMOTIDINE 20 MG/2 ML IVPush SCH ×3 (03:12→21:13)
[2021-07-11 06:23] LABS: BASOPHILS % (AUTO) 0 % (0-1); EOSINOPHILS % (AUTO) 1 % (1-7); LYMPHOCYTES % (AUTO) 14 % (22-44); MEAN CORPUSCULAR HEMOGLOBIN 31.2 pg (27.0-34.8); MEAN CORPUSCULAR HGB CONC 33.3 g/dL (32.4-35.8); MEAN PLATELET VOLUME 10.4 fL (7.4-10.4); MONOCYTES % (AUTO) 11 % (2-9); NEUTROPHILS % (AUTO) 74 % (42-75); PLATELET COUNT 201 x10^3/uL (130-400); RED BLOOD COUNT 3.85 x10^6/uL (3.82-5.3); RED CELL DISTRIBUTION WIDTH 14.2 % (9.6-15.2)
[2021-07-11 06:33] LABS: ANION GAP 4 mmol/L (5-15); CALCIUM 8.4 mg/dL (8.5-10.1); CHLORIDE 112 mmol/L (98-107); CREATININE 0.73 mg/dL (0.55-1.02)
[2021-07-11] MEDS: ALBUTEROL/IPRATROPIUM 2.5MG/0.5MG, 3 ML NPPB SCH ×2 (07:00→10:53)
[2021-07-11] MEDS: BUDESONIDE 0.5 MG/2 ML INHA INH SCH ×2 (07:02→22:30)
[2021-07-11] MEDS: LACTATED RINGERS 1,000 ML IV SCH ×2 (08:00→17:26)
[2021-07-11 08:57] VITALS: BP 133/80
[2021-07-11] MEDS ORDERED: maalox/diphenh/lido/sucralfate 5 ML PO PRN (10:00)
[2021-07-11] MEDS ORDERED: NYSTATIN 500,000 UNITS/5 ML UDC ONE (10:54)
[2021-07-11] MEDS: NYSTATIN 500,000 UNITS/5 ML UDC PO SCH ×3 (11:39→21:12)
[2021-07-11] MEDS ORDERED: ALBUTEROL/IPRATROPIUM 2.5MG/0.5MG, 3 ML NPPB PRN (13:30)
[2021-07-11 13:36] VITALS: BP 138/82
[2021-07-11] MEDS ORDERED: NYSTATIN 500,000 UNITS/5 ML UDC PO SCH (16:00)
[2021-07-11] MEDS ORDERED: OXYcodone 5 MG/5 ML ORAL.SOL UDC PO PRN (16:00)
[2021-07-11] MEDS: ENOXAPARIN 40 MG/0.4 ML SQ SCH (17:25)
[2021-07-11] MEDS: CEFTRIAXONE 1,000 MG in DEXTROSE 5% 50 ML IVPB SCH (17:25)
[2021-07-11 19:14] VITALS: BP 146/85
[2021-07-11] MEDS ORDERED: FUROSEMIDE 40 MG/4 ML IV ONE (22:00)
[2021-07-12 00:54] VITALS: BP 160/95
[2021-07-12] MEDS: KETOROLAC 30 MG/1 ML IV SCH ×4 (01:00→22:11)
[2021-07-12] MEDS: NYSTATIN 500,000 UNITS/5 ML UDC PO SCH ×4 (06:06→22:05)
[2021-07-12 07:14] LABS: BASOPHILS % (AUTO) 1 % (0-1); EOSINOPHILS % (AUTO) 1 % (1-7); LYMPHOCYTES % (AUTO) 8 % (22-44); MEAN CORPUSCULAR HEMOGLOBIN 30.6 pg (27.0-34.8); MEAN CORPUSCULAR HGB CONC 33.3 g/dL (32.4-35.8); MEAN PLATELET VOLUME 10.3 fL (7.4-10.4); MONOCYTES % (AUTO) 8 % (2-9); NEUTROPHILS % (AUTO) 83 % (42-75); PLATELET COUNT 203 x10^3/uL (130-400); RED BLOOD COUNT 4.03 x10^6/uL (3.82-5.3); RED CELL DISTRIBUTION WIDTH 14.2 % (9.6-15.2)
[2021-07-12 07:18] LABS: CHLORIDE 103 mmol/L (98-107)
[2021-07-12 07:24] LABS: ALANINE AMINOTRANSFERASE 30 U/L (12-78); ALBUMIN 2.1 g/dL (3.4-5.0); ALKALINE PHOSPHATASE 51 U/L (45-117); ANION GAP 10 mmol/L (5-15); BILIRUBIN,TOTAL 0.5 mg/dL (0.2-1.0); CALCIUM 8.3 mg/dL (8.5-10.1); CREATININE 0.58 mg/dL (0.55-1.02); TOTAL PROTEIN 6.2 g/dL (6.4-8.2)
[2021-07-12 07:25] VITALS: BP 140/75
[2021-07-12] MEDS: BUDESONIDE 0.5 MG/2 ML INHA INH SCH ×2 (09:00→21:00)
[2021-07-12] MEDS ORDERED: FLUTICASONE/VILANTEROL 100-25MCG/INH HOMEINH SCH (09:00)
[2021-07-12] MEDS ORDERED: FLUTICASONE/VILANTEROL 100-25MCG/INH INH SCH (09:00)
[2021-07-12] MEDS ORDERED: IPRATROPIUM HFA 17 MCG/INH INH SCH (09:00)
[2021-07-12] MEDS: SPIRIVA RESPIMAT HOMEINH SCH (09:00)
[2021-07-12] MEDS: FAMOTIDINE 20 MG/2 ML IVPush SCH ×2 (09:05→22:05)
[2021-07-12] MEDS ORDERED: FUROSEMIDE 40 MG/4 ML IV ONE (09:30)
[2021-07-12] MEDS ORDERED: MAGNESIUM SULFATE PMX 2GM/50ML 50 ML IV ONE (11:00)
[2021-07-12] MEDS: METOCLOPRAMIDE 5 MG/ML, 2ML IVPush SCH ×2 (13:18→18:03)
[2021-07-12 13:50] VITALS: BP 138/74
[2021-07-12] MEDS ORDERED: POTASSIUM CHLORIDE 20 MEQ PACKET PO ONE (17:00)
[2021-07-12] MEDS: ENOXAPARIN 40 MG/0.4 ML SQ SCH (18:03)
[2021-07-12] MEDS: CEFTRIAXONE 1,000 MG in DEXTROSE 5% 50 ML IVPB SCH (18:04)
[2021-07-12 19:54] VITALS: BP 131/68
[2021-07-13] MEDS: METOCLOPRAMIDE 5 MG/ML, 2ML IVPush SCH ×4 (00:29→18:27)
[2021-07-13 01:45] VITALS: BP 126/62
[2021-07-13 04:23] LABS: BASOPHILS % (AUTO) 1 % (0-1); EOSINOPHILS % (AUTO) 2 % (1-7); LYMPHOCYTES % (AUTO) 10 % (22-44); MEAN CORPUSCULAR HEMOGLOBIN 31.1 pg (27.0-34.8); MEAN CORPUSCULAR HGB CONC 33.5 g/dL (32.4-35.8); MEAN PLATELET VOLUME 9.9 fL (7.4-10.4); MONOCYTES % (AUTO) 8 % (2-9); NEUTROPHILS % (AUTO) 80 % (42-75); PLATELET COUNT 220 x10^3/uL (130-400); RED BLOOD COUNT 3.61 x10^6/uL (3.82-5.3); RED CELL DISTRIBUTION WIDTH 13.9 % (9.6-15.2)
[2021-07-13 04:34] LABS: ANION GAP 4 mmol/L (5-15); CALCIUM 8.1 mg/dL (8.5-10.1); CHLORIDE 101 mmol/L (98-107)
[2021-07-13 04:35] LABS: CREATININE 0.67 mg/dL (0.55-1.02)
[2021-07-13] MEDS: NYSTATIN 500,000 UNITS/5 ML UDC PO SCH ×4 (05:51→20:25)
[2021-07-13] MEDS: BUDESONIDE 0.5 MG/2 ML INHA INH SCH (07:00)
[2021-07-13 07:06] VITALS: BP 126/76
[2021-07-13] MEDS ORDERED: BISACODYL 10 MG SUPP PR SCH (07:30)
[2021-07-13] MEDS: DOCUSATE 100 MG CAPSULE PO SCH ×2 (08:20→20:25)
[2021-07-13] MEDS: FAMOTIDINE 20 MG/2 ML IVPush SCH ×2 (08:21→20:26)
[2021-07-13] MEDS: methylPREDNISolone SOD SUCC 40 MG/ML IV SCH ×3 (08:21→20:25)
[2021-07-13] MEDS: SPIRIVA RESPIMAT HOMEINH SCH (08:47)
[2021-07-13] MEDS ORDERED: ACETAMINOPHEN 325 MG TABLET PO PRN (09:30)
[2021-07-13] MEDS ORDERED: FUROSEMIDE 20 MG/2 ML IV ONE (09:30)
[2021-07-13 13:22] VITALS: BP 129/80
[2021-07-13] MEDS: ENOXAPARIN 40 MG/0.4 ML SQ SCH (18:27)
[2021-07-13 19:28] VITALS: BP 130/66
[2021-07-13] MEDS: CEFTRIAXONE 1,000 MG in DEXTROSE 5% 50 ML IVPB SCH (19:33)
[2021-07-14 00:28] VITALS: BP 129/64
[2021-07-14] MEDS: METOCLOPRAMIDE 5 MG/ML, 2ML IVPush SCH ×3 (00:33→11:52)
[2021-07-14] MEDS: methylPREDNISolone SOD SUCC 40 MG/ML IV SCH ×2 (02:17→09:15)
[2021-07-14 04:29] LABS: BASOPHILS % (AUTO) 0 % (0-1); EOSINOPHILS % (AUTO) 0 % (1-7); LYMPHOCYTES % (AUTO) 5 % (22-44); MEAN CORPUSCULAR HEMOGLOBIN 31.4 pg (27.0-34.8); MEAN CORPUSCULAR HGB CONC 33.9 g/dL (32.4-35.8); MEAN PLATELET VOLUME 9.1 fL (7.4-10.4); MONOCYTES % (AUTO) 5 % (2-9); NEUTROPHILS % (AUTO) 89 % (42-75); PLATELET COUNT 263 x10^3/uL (130-400); RED BLOOD COUNT 3.54 x10^6/uL (3.82-5.3); RED CELL DISTRIBUTION WIDTH 13.7 % (9.6-15.2)
[2021-07-14 04:45] LABS: ANION GAP 5 mmol/L (5-15); CALCIUM 8.8 mg/dL (8.5-10.1); CHLORIDE 100 mmol/L (98-107); CREATININE 0.52 mg/dL (0.55-1.02)
[2021-07-14] MEDS: NYSTATIN 500,000 UNITS/5 ML UDC PO SCH ×2 (06:12→11:52)
[2021-07-14 06:50] VITALS: BP 144/82
[2021-07-14] MEDS ORDERED: POTASSIUM CHLORIDE 20 MEQ PACKET PO ONE (07:30)
[2021-07-14] MEDS: SPIRIVA RESPIMAT HOMEINH SCH (09:00)
[2021-07-14] MEDS ORDERED: FLUTICASONE FUROATE 200MCG/INH INH SCH (09:00)
[2021-07-14] MEDS: DOCUSATE 100 MG CAPSULE PO SCH (09:00)
[2021-07-14] MEDS: FAMOTIDINE 20 MG/2 ML IVPush SCH (09:15)
[2021-07-14] MEDS ORDERED: OXYC5TAB98 PO (10:55)
[2021-07-14] MEDS ORDERED: FAMOTIDINE 20 MG TABLET PO SCH (21:00)
== END 2021-07-14 12:30 | disposition home or self-care (01) | DRG 326 ==
LOC: ED 19:06 → EDIP 19:07 → 4NE 22:39 → 4WST 07-10 18:13
PROVIDERS: ADMIT Family Medicine; ATTEND Internal Medicine
PROC: 0BQT0ZZ Repair Diaphragm, Open Approach (ICD-10-PCS; 2021-07-09)
PROC: 0DJ00ZZ Inspection of Upper Intestinal Tract, Open Approach (ICD-10-PCS; principal; 2021-07-09 19:45)
DX: K44.0 Diaphragmatic hernia with obstruction, without gangrene (principal); J96.21 Acute and chronic respiratory failure with hypoxia; J44.1 Chronic obstructive pulmonary disease with (acute) exacerbation; E87.6 Hypokalemia; I50.9 Heart failure, unspecified; K21.9 Gastro-esophageal reflux disease without esophagitis; K59.00 Constipation, unspecified; N20.0 Calculus of kidney; Z20.822 Contact with and (suspected) exposure to COVID-19; Z66 Do not resuscitate; Z85.01 Personal history of malignant neoplasm of esophagus; Z87.891 Personal history of nicotine dependence; Z92.21 Personal history of antineoplastic chemotherapy; Z92.3 Personal history of irradiation; Z79.899 Other long term (current) drug therapy
CPT/HCPCS: 36415; 71045; 71275; 80048; 80053; 82962; 83735; 83880; 84100; 84484; 85025; 87040; 87635; 93005; 93306; 94640; 96374; 96375; G0378; J0696; J1650; J1885; J1940; J2405; J2704; J3010; J3480; J7626; Q9967; C1765; J0330; J2765; J2920; J3475; J7030; J7040; J7120